=== PATIENT | male | born 1975 | race Caucasian/White ===

== ENCOUNTER 2016-11-10 10:00 | Emergency (ER) | payer OTHER ==
[~2016-11-10] VITALS: Ht 188 cm; Wt 131.8 kg
[2016-11-10 10:09] VITALS: BP 155/86; PULSE 85; RESP 18; O2SAT 96
--- NOTE | 2016-11-10 10:25 | ED.REPORT ---
HPI-Rash / Abscess Date of Service Nov 10, 2016 ED Provider: Dr. Jan Mauricio The patient is a 41 year old male who presents to the ED due to an abscess on his right hip for the past month. He had 2 puncture wounds due to a nadege nail while cleaning his grandmother's house. Over the past month, they have been gradually increasing in size and have pain and warmth, with an onset of fever 48 hrs ago. Earlier this week he drained his right hip abscess himself, and at the ED they are continuing to drain without intervention. Nursing Notes Stated Complaint: LEFT SHOULDER PAIN Chief Complaint: Skin Rash/Abscess Nursing Notes Reviewed: Yes Allergies: Coded Allergies: hydrochlorothiazide (Verified Allergy, Unknown, 11/10/16) Scheduled Sulfamethoxazole/Trimeth 800-160 mg (Bactrim DS 800-160 mg) 1 Each Tablet 1 TABLET PO BID General Time Seen by MD: 10:24 Chief Complaint Abscess Hx Obtained From: Patient Arrived By: Walk-in Onset Occurred: More than a week ago... (1 month) Symptom Duration: Since onset Location: : Lower extremity Quality: Painful Severity: Current: Mild Recent Healthcare: No recent doctor visit, No recent hospitalization Similar Sx Previous: No Past Medical History Past Medical History Reports: Hypertension Past Surgical History denies Smoking History Unknown if Ever Smoker Social History Other Social History: Local resident Ambulatory Status Independent Review of Systems Constitutional: Reports: Fever Skin: Reports Rash (abscess) Complete sys rev & neg: except as marked. Physical Exam Physical Exam Notes: obese stable vitasl Initial Vital Signs Vital Signs (First) Date Time Temp Pulse Resp B/P Pulse Ox O2 Delivery O2 Flow Rate FiO2 11/10/16 10:09 36.6 85 18 155/86 96 11/10/16 12:02 Room Air Initial VS: Reviewed Head / Eyes: Atraumatic, Normocephalic, PERRL Respiratory: Breath sounds normal, Clear to auscultation, No respiratory distress Cardiovascular: Regular rate & rhythm, Heart sounds normal Abdomen / GI: Soft, Non-tender, No guarding, No rebound Neurologic: Alert, Oriented Psychiatric: Mood/affect normal, Behavior normal General/Constitutional: Awake, Alert Appearance / Presentation: Positive: Obese Color / Condition: Positive: Lesion present... Rash / Lesion Notes: left humoral 3cm abscess w/ surrounding induration and cellulitis no crepitus, no pain out of proportion on exam right hip 3cm abscess w/ surrounding induration and cellulitis no crepitus, no pain out of proportion on exam Procedures Incision & Drainage Abscess Time: 11:00 Procedure Performed by: ED resident Consent / Setup / Site Prep: Informed consent provided, Consent from patient Location of Abscess: 1. L shoulder 2. R hip Skin Preparation Agent: Betadine Local Anesthesia: Lidocaine 1% Incised Abscess with Scalpel: #15 Pus Drained: Medium Irrigation: Copious Post-Procedure / Complications: Packing placed, Dressing applied, No complications, Tolerated procedure well, Patient stable Re-Eval/Medical Decision Med Decision/Clinical Course 41-year-old with cutaneous abscesses related to puncture wounds, he does not have findings of severe symphysis clinically based on vital signs, he has focal cutaneous abscesses without signs of necrotizing fasciitis, he will be started on oral Bactrim. The wounds were incised and drained at the bedside. 48 hour follow-up is recommended. Close return and follow-up precautions are given. Counseled Regarding: Diagnosis, Lab results, Need for follow-up, When/why to return to ED Discharge & Departure Impression: Primary Impression: Abscess of multiple sites Disposition: Home Discharge Condition All VS Reviewed: Yes Condition: Stable Additional Instructions: You had 2 abscesses, which were opened and drained. Continue Bactrim. You should have wound recheck in 48 hours to have packing removed and reassessed. Return to the ER sooner if you develop severe worsening of the redness and swelling, persistent high fever, lethargy, or other concerns Referrals: Nimo Parnell PA-C (PCP) Thomas Attestation Portion of this note were transcribed by Nadege Medina. I, Dr. Mauricio, personally performed the history, physical exam, and medical decision-making: I reviewed and confirmed the accuracy for the information in the transcribed note. Signed by: thomas Villagomez, 11/10/16 1300 copies to: Nimo Parnell PA-C, Timothy S DO Nov 10, 2016 10:25 Matias Felix MD Nov 10, 2016 11:55 Nadege Medina Nov 10, 2016 12:28
[2016-11-10] MEDS ORDERED: Lidocaine 1%/Epi 1:100,000 30 mL MDV SUBQ ONE (11:10)
[2016-11-10] MEDS ORDERED: SULF1TAB35 PO (11:38)
[2016-11-10] MEDS ORDERED: Trimethoprim-Sulfa 160 mg-800 mg Tablet PO ONE (11:40)
[2016-11-10] MEDS ORDERED: TdaP Vaccine 0.5 mL Inj IM ONE (11:40)
[2016-11-10 12:02] VITALS: BP 149/83; PULSE 77; O2SAT 94
== END 2016-11-10 12:05 | disposition home or self-care (01) ==
LOC: SED 10:00
DX: L02.415 Cutaneous abscess of right lower limb (principal); L02.414 Cutaneous abscess of left upper limb; I10 Essential (primary) hypertension; Z23 Encounter for immunization

== ENCOUNTER 2016-11-12 05:24 | Emergency (ER) | payer OTHER ==
[~2016-11-12] VITALS: Ht 188 cm; Wt 131.8 kg
[~2016-11-12 05:24] MED LIST: SULF1TAB35 PO
[2016-11-12 05:26] VITALS: BP 147/87; PULSE 87; RESP 24; O2SAT 97
--- NOTE | 2016-11-12 06:05 | ED.REPORT ---
HPI-Recheck W/B/S Date of Service Nov 12, 2016 ED Provider: Jan Mauricio DO The patient is an otherwise healthy 41 year old male who presents to the ED for a wound recheck on cutaneous abscesses related to puncture wounds on his left upper arm and right upper thigh received 4 days ago. Pt was seen at the ED 2 days ago (11/10/16) at which time the wounds were incised and drained at bedside. He was discharged on a course of oral Bactrim and was recommended to return in 48 hrs to have packing removed and reassessed. He states he is feeling better and that they are improving. Nursing Notes Stated Complaint: NEEDS PACKING CHANGED Chief Complaint: Wound Recheck/Suture Removal Nursing Notes Reviewed: Yes Allergies: Coded Allergies: hydrochlorothiazide (Verified Allergy, Unknown, 11/12/16) Scheduled Sulfamethoxazole/Trimeth 800-160 mg (Bactrim DS 800-160 mg) 1 Each Tablet 1 TABLET PO BID General Time Seen by Provider: 06:14 Chief Complaint Wound check Wound / Injury Type: Abscess Prior Tx of Wound / Injury: Antibiotics, oral, Incision & drainage Hx Obtained From: Patient Arrived By: Walk-in Onset Occurred: 4 days ago Symptom Duration: Since onset Progression Since Onset: Gradually improving Recent Healthcare: Recent doctor visit Similar Sx Previous: Yes Past Medical History Past Medical History Reports: Hypertension Past Surgical History denies Smoking History Unknown if Ever Smoker Social History Other Social History: Local resident Ambulatory Status Independent Review of Systems Constitutional: Denies: Fever Skin: Reports Bruising (abscess on left shoulder and right thigh) Complete sys rev & neg: except as marked. Physical Exam Initial Vital Signs Vital Signs (First) Date Time Temp Pulse Resp B/P Pulse Ox O2 Delivery O2 Flow Rate FiO2 11/12/16 05:26 37.1 87 24 147/87 97 Room Air Initial VS: Reviewed General/Constitutional: Well-developed, Well-nourished Head / Eyes: Atraumatic, Normocephalic, PERRL ENT: Mucous membranes moist, Conjunctiva normal Abdomen / GI: Soft, Non-tender Extremities: Vascular intact, No swelling Neurologic: Alert, Oriented Rash / Lesion Notes: minimal surrounding erythema on left shoulder abscess 4-5cm of surrounding erythema on right thigh abscess Rash / Lesion Location: Positive: Shoulder L, Thigh R Lower Extremity / Pelvis / MS: Full range of motion, No edema Re-Eval/Medical Decision Med Decision/Clinical Course Wound is repacked, recommend 2-3 day recheck. Continue antibiotics. Re-Evaluation/Progress : Time of Eval: 06:20 Re-Evaluation/Progress Note: Pt rechecked. Both wounds repacked with iodoform. Informed pt of plan for treatment. Recommend that patient return for reassessment in 2-3 days. Pt understands and agrees with plan. Counseled Regarding: Diagnosis, Lab results, Need for follow-up, When/why to return to ED Discharge & Departure Impression: Primary Impression: Abscess of multiple sites Disposition: Home Discharge Condition All VS Reviewed: Yes Condition: Stable Additional Instructions: Continue your antibiotics. Return to the ER in 2-3 days for wound recheck. Return to the ER sooner if there are high fever, worsening redness or swelling or other concerns Referrals: NOPCP (PCP) [facility] Scribe Attestation Portion of this note were transcribed by Nadege Medina. I, Dr. Mauricio, personally performed the history, physical exam, and medical decision-making: I reviewed and confirmed the accuracy for the information in the transcribed note. Signed by: thomas Villagomez, 11/12/16 0800 copies to: [facility] Jan Mauricio DO Nov 12, 2016 06:05 Nadege Medina Nov 12, 2016 06:21
== END 2016-11-12 06:23 | disposition home or self-care (01) ==
LOC: SED 05:24
DX: L02.413 Cutaneous abscess of right upper limb (principal); L02.415 Cutaneous abscess of right lower limb; Z88.8 Allergy status to other drugs, medicaments and biological substances